=== PATIENT | female | born 1940 | race Caucasian/White ===

== ENCOUNTER 2016-11-10 01:49 | Emergency (ER) | payer MEDICARE, BC ==
[2016-11-10 03:00] LABS: BASO % 0.1 % (0-6); EOS % 3.3 % (0-6); GRAN % 75.5 % (47-80); HEMATOCRIT 35.8 % (35.0-47.0); LYMPH % 14.9 % (16-45); MEAN CELL VOLUME 91.3 fl (81-97); MEAN CORPUSCULAR HGB CONC 30.7 g/dl (32-36); MONO % 6.2 % (0-9); PLATELET COUNT 254 K/uL (130-400); RED BLOOD COUNT 3.92 M/uL (3.80-5.40); RED CELL DISTRIBUTION WIDTH 14.9 % (11.5-14.5); WHITE BLOOD COUNT W/O DIFF 8.8 K/uL (4.2-12.2)
[2016-11-10 03:02] LABS: INR 0.99; PARTIAL THROMBOPLASTIN TIME 27.3 SECONDS (24.5-39.1); PROTHROMBIN TIME (PATIENT) 10.7 SECONDS (9.5-12.1)
[2016-11-10 03:04] LABS: CREATININE 1.5 mg/dL (0.5-0.9)
--- NOTE | 2016-11-10 03:26 | Emergency Department Record ---
History of Present Illness - General Chief complaint: Lower Extremity Pain Stated complaint: UPPER LEFT LEG PAIN Time Seen by Provider: 11/10/16 02:20 Source: Patient Mode of Arrival: Ambulatory Limitations: No limitations - History of Present Illness Initial comments: pt c/o lle pain. pt is very poor historian she denies injury, she states it hurts from the groin to the knee along the medial aspect Complaint: Extremity pain Onset/Timin -: Days(s) Location: Left, Lower Leg, Thigh History of Same: Yes Severity scale (1-10): 5 Improves with: Medication, Rest Worsens with: Walking Associated Symptoms: Denies other symptoms - Related Data Previous Rx's Medication Instructions Recorded Acetaminophen [Tylenol 325Mg] 650 mg PO Q6H PRN #0 tablet 07/15/15 Albuterol Sulfate [Proair Hfa] 1 - 2 puff IH .EVERY 4-6 HOURS PRN 07/15/15 #1 inhaler Oxybutynin Chloride [Ditropan] 5 mg PO BID tab 07/15/15 Allergies Allergy/AdvReac Type Severity Reaction Status Date / Time Penicillins Allergy HIVES Verified 10/08/14 11:39 Sulfa (Sulfonamide Allergy HIVES Verified 10/08/14 11:39 Antibiotics) Tetanus Vaccines and Toxoid AdvReac SWELLING Verified 10/08/14 11:39 [Tetanus Vaccines & Toxoid] (GENERAL) Travel Screening - Travel/Exposure Within Last 30 Days Have you traveled within the last 30 days?: No - Travel Symptoms Symptom Screening: None Review of Systems Reviewed: No additional complaints except as noted below Constitutional: Reports: As per HPI. Denies: Chills, Fever, Malaise, Night sweats, Weakness, Weight change Eyes: Reports: As per HPI. Denies: Eye discharge, Eye pain, Photophobia, Vision change ENT: Reports: As per HPI. Denies: Congestion, Dental pain, Ear pain, Epistaxis , Hearing loss, Throat pain Respiratory: Reports: As per HPI. Denies: Cough, Dyspnea, Hemoptysis, Stridor, Wheezes Cardiovascular: Reports: As per HPI. Denies: Arrhythmia, Chest pain, Dyspnea on exertion, Edema, Murmurs, Orthopnea, Palpitations, Paroxysmal nocturnal dyspnea, Rheumatic Fever, Syncope Endocrine: Reports: As per HPI. Denies: Fatigue, Heat or cold intolerance, Polydipsia, Polyuria Gastrointestinal: Reports: As per HPI. Denies: Abdominal pain, Constipation, Diarrhea, Hematemesis, Hematochezia, Melena, Nausea, Vomiting Genitourinary: Reports: As per HPI. Denies: Abnormal menses, Discharge, Dyspareunia, Dysuria, Frequency, Hematuria, Incontinence, Retention, Urgency Musculoskeletal: Reports: As per HPI. Denies: Arthralgia, Back pain, Gout, Joint swelling, Myalgia, Neck pain Skin: Reports: As per HPI. Denies: Bruising, Change in color, Change in hair/ nails, Lesions, Pruritus, Rash Neurological: Reports: As per HPI. Denies: Abnormal gait, Confusion, Headache, Numbness, Paresthesias, Seizure, Tingling, Tremors, Vertigo, Weakness Psychiatric: Reports: As per HPI. Denies: Anxiety, Auditory hallucinations, Depression, Homicidal thoughts, Suicidal thoughts, Visual hallucinations Hematological/Lymphatic: Reports: As per HPI. Denies: Anemia, Blood Clots, Easy bleeding, Easy bruising, Swollen glands Past Medical History - SOCIAL HISTORY Smoking Status: Never smoker - RESPIRATORY Hx Respiratory Disorders: Yes Hx Asthma: Yes - CARDIOVASCULAR Hx Cardio Disorders: No - NEURO Hx Neuro Disorders: Yes Hx Headaches: Yes Hx Neuropathy: Yes (finger tips-bilateral) Comment:: vertigo-all the time - GI Hx GI Disorders: Yes Hx Reflux: Yes Hx Wt Loss/Wt Gain: Yes (down 10 in a few months) - Hx Genitourinary Disorders: Yes Hx Bladder Problem: Yes Comment:: urinary incont. - ENDOCRINE Hx Endocrine Disorders: Yes Hx Thyroid Disease: Yes (graves) - MUSCULOSKELETAL Hx Musculoskeletal Disorders: Yes Hx Arthritis: Yes Hx Fibromyalgia: Yes Hx Osteoporosis: Yes Comment:: RLS - PSYCH Hx Psych Problems: Yes Hx Anxiety: Yes Hx Depression: Yes - HEMATOLOGY/ONCOLOGY Hx Hematology/Oncology Disorders: Yes Hx Cancer: Yes (breast) Hx Chemotherapy: Yes Hx Radiation Therapy: No Family Medical History Any Significant Family History?: Yes Family Hx Comment (NOT TO BE USED IN PLACE OF ITEMS BELOW): hematonecrosis- maternal grandmother *Cancer Comment: breast cancer in niece and cousins Hx Stroke: Mother Physical Exam - General General Appearance: Alert, Oriented x3, Cooperative, Mild distress - Head Head exam: Normal inspection - Eye Eye exam: Normal appearance, PERRL, EOMI Pupils: Normal accommodation - ENT ENT exam: Normal exam, Mucous membranes moist, Normal external ear exam, Normal orophraynx Ear exam: Normal external inspection. negative: External canal tenderness Nasal Exam: Normal inspection. negative: Discharge, Sinus tenderness Mouth exam: Normal external inspection, Tongue normal Teeth exam: Normal inspection. negative: Dental caries Throat exam: Normal inspection. negative: Tonsillar erythema, Tonsillar exudate - Neck Neck exam: Normal inspection, Full ROM. negative: Tenderness - Respiratory Respiratory exam: Normal lung sounds bilaterally. negative: Respiratory distress - Cardiovascular Cardiovascular Exam: Regular rate, Normal rhythm, Normal heart sounds - GI/Abdominal GI/Abdominal exam: Soft, Normal bowel sounds. negative: Tenderness - Rectal Rectal exam: Deferred - exam: Deferred - Extremities Extremities exam: Normal inspection, Full ROM, Normal capillary refill. negative: Tenderness - Back Back exam: Reports: Normal inspection, Full ROM. Denies: Muscle spasm, Rash noted, Tenderness - Neurological Neurological exam: Alert, CN II-XII intact, Normal gait, Oriented X3 - Psychiatric Psychiatric exam: Normal affect, Normal mood - Skin Skin exam: Dry, Intact, Normal color, Warm Course Vital Signs 11/10/16 11/10/16 02:09 03:20 Temperature 99.2 F 98.9 F Pulse Rate [ 93 H 81 Pulse Ox Probe] Respiratory 24 20 Rate Blood Pressure 138/64 109/68 [Left Arm] Pulse Ox 95 96 - Reevaluation(s) Reevaluation #1: 11/10/16 07:[address] brandon Medical Decision Making - Lab Data Result diagrams: 11/10/16 02:41 11/10/16 02:41 Lab Results 11/10/16 11/10/16 11/10/16 Range/Units 02:41 02:41 02:41 WBC 8.8 (4.2-12.2) K/uL RBC 3.92 (3.80-5.40) M/uL Hgb 11.0 L (11.6-16.0) gm/dl Hct 35.8 (35.0-47.0) % MCV 91.3 (81-97) fl MCH 28.0 (27-33) pg MCHC 30.7 L (32-36) g/dl RDW 14.9 H (11.5-14.5) % Plt Count 254 (130-400) K/uL MPV 10.0 (7.4-10.4) fl Gran % 75.5 (47-80) % Lymphocytes % 14.9 L (16-45) % Monocytes % 6.2 (0-9) % Eosinophils % 3.3 (0-6) % Basophils % 0.1 (0-6) % PT 10.7 (9.5-12.1) SECONDS INR 0.99 APTT 27.30 (24.5-39.1) SECONDS Sodium 140 (136-145) mmol/L Potassium 4.0 (3.4-4.5) mmol/L Chloride 104 (98-107) mmol/L Carbon Dioxide 22.0 (22-29) mmol/L Anion Gap 14.0 (7-16) BUN 17 (8-23) mg/dL Creatinine 1.5 H (0.5-0.9) mg/dL Estimated GFR 36 mL/min Random Glucose 110 H (74-109) mg/dL Calcium 8.5 L (8.8-10.2) mg/dL Disposition Forms: Patient Portal Access Quality - Quality Measures Quality Measures: N/A - Blood Pressure Screening Does Patient Have Any of the Following: No Blood Pressure Classification: Hypertensive Reading Systolic Measurement: 153 Diastolic Measurement: 70 Screening for High Blood Pressure: < First Hypertensive BP, F/U Documented > [ G8950] First Hypertensive Follow-up Interventions: Follow-up with rescreen GT 1 day and LT 4 weeks.
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
--- NOTE | 2016-11-11 13:57 | US VENOUS DOPPLER REPORT ---
DATE: 11/10/2016. EXAM: Left lower extremity duplex venous ultrasound. HISTORY: Leg pain. TECHNIQUE: Transverse and longitudinal sonographic images of the left lower extremity deep venous system. COMPARISON: None. FINDINGS: Doppler and spectral analysis with color flow is utilized. Normal waveforms. Normal compression and augmentation throughout. No visible areas of clot formation. IMPRESSION: NEGATIVE EXAMINATION. JOB NUMBER: [id number] MTDD
--- NOTE | 2016-11-11 14:01 | RADIOLOGY REPORT ---
DATE: 11/10/2016. EXAM: LEFT FEMUR. HISTORY: Leg pain. TECHNIQUE: Four views of the left femur. COMPARISON: None. ENCOUNTER: Initial. FINDINGS: Osteopenia. Negative for fracture or dislocation. Mild degenerative changes of the knee and hip. Soft tissues are unremarkable. IMPRESSION: OSTEOPENIA. DEGENERATIVE CHANGE. JOB NUMBER: [id number] MTDD
== END 2016-11-10 09:03 | disposition home or self-care (01) ==
LOC: ER 01:49
DX: S39.012A Strain of muscle, fascia and tendon of lower back, initial encounter (principal); M79.652 Pain in left thigh; W19.XXXA Unspecified fall, initial encounter
CPT/HCPCS: 80048; 84443; 85025; 85379; 85610; 85730; 99283; 99284

== ENCOUNTER 2017-02-03 16:15 | Emergency (ER) | payer MEDICARE, BC ==
[2017-02-03] MEDS ORDERED: ACETAMINOPHEN 500 MG TABLET PO ONE (16:33)
--- NOTE | 2017-02-03 16:47 | Emergency Department Record ---
History of Present Illness - General Chief Complaint: Fever Stated Complaint: FEVER,COUGH Time Seen by Provider: 02/03/17 16:47 Source: Patient, RN notes reviewed Mode of Arrival: Ambulatory - History of Present Illness Initial Comments: 2 days of congestion and cough. Never smoked . asthma, left flank pain, uses inhaler albuterol times one MD Complaint: Fever Onset/Timin -: Days(s) Maximum Temperature: 102.9 F Temperature Source: Oral Treatments Prior to Arrival: Aspirin - Related Data Previous Rx's Medication Instructions Recorded Acetaminophen [Tylenol 325Mg] 650 mg PO Q6H PRN #0 tablet 07/15/15 Albuterol Sulfate [Proair Hfa] 1 - 2 puff IH .EVERY 4-6 HOURS PRN 07/15/15 #1 inhaler Oxybutynin Chloride [Ditropan] 5 mg PO BID tab 07/15/15 Hydrocodone/Acetaminophen [[place] 1 each PO Q6HR #30 tablet 11/10/16 5-325 Tablet] Oseltamivir Phosphate [Tamiflu] 75 mg PO BID #10 capsule 02/03/17 Allergies Allergy/AdvReac Type Severity Reaction Status Date / Time doxycycline Allergy HIVES Verified 02/03/17 16:24 erythromycin base Allergy HIVES Verified 02/03/17 16:24 Penicillins Allergy HIVES Verified 02/03/17 16:24 Sulfa (Sulfonamide Allergy HIVES Verified 02/03/17 16:24 Antibiotics) Tetanus Vaccines and Toxoid AdvReac SWELLING Verified 02/03/17 16:24 [Tetanus Vaccines & Toxoid] (GENERAL) Travel Screening - Travel/Exposure Within Last 30 Days Have you traveled within the last 30 days?: No - Travel/Exposure Within Last Year Have you traveled outside the [place] in the last year?: No - Additonal Travel Details Have you been exposed to anyone with a communicable illness?: No - Travel Symptoms Symptom Screening: None Past Medical History - SOCIAL HISTORY Smoking Status: Never smoker Alcohol Use: None Drug Use: None - RESPIRATORY Hx Respiratory Disorders: Yes Hx Asthma: Yes Hx Pneumonia: Yes - CARDIOVASCULAR Hx Cardio Disorders: No - NEURO Hx Neuro Disorders: Yes Hx Headaches: Yes Hx Neuropathy: Yes (finger tips-bilateral) Comment:: vertigo-all the time - GI Hx GI Disorders: Yes Hx Reflux: Yes Hx Wt Loss/Wt Gain: Yes (down 10 in a few months) - Hx Genitourinary Disorders: Yes Hx Bladder Problem: Yes Comment:: urinary incont. - ENDOCRINE Hx Endocrine Disorders: Yes Hx Thyroid Disease: Yes (graves) - MUSCULOSKELETAL Hx Musculoskeletal Disorders: Yes Hx Arthritis: Yes Hx Fibromyalgia: Yes Hx Osteoporosis: Yes Comment:: RLS - PSYCH Hx Psych Problems: Yes Hx Anxiety: Yes Hx Depression: Yes - HEMATOLOGY/ONCOLOGY Hx Hematology/Oncology Disorders: Yes Hx Cancer: Yes (breast) Hx Chemotherapy: Yes Hx Radiation Therapy: No Family Medical History Any Significant Family History?: Yes Family Hx Comment (NOT TO BE USED IN PLACE OF ITEMS BELOW): hematonecrosis- maternal grandmother *Cancer Comment: breast cancer in niece and cousins Hx Stroke: Mother Course Vital Signs 02/03/17 16:18 Temperature 103.1 F H Pulse Rate 108 H Respiratory 18 Rate Blood Pressure 165/88 Pulse Ox 95 Medical Decision Making - Data Complexity MDM Data: Labs Ordered and/or Reviewed (flu positive), X-Ray Ordered and/or Reviewed (negative chest) - Lab Data Result diagrams: 02/03/17 17:00 02/03/17 17:00 Disposition Clinical Impression: Influenza Fever Qualifiers: Fever type: unspecified Qualified Code(s): R50.9 - Fever, unspecified Disposition: Home, Self-Care Condition: (1) Good Instructions: Fever in Adults (ED), Influenza (ED) Additional Instructions: fluids rest tylenol or motrin follow up with family Dr in 4 days Prescriptions: Oseltamivir Phosphate [Tamiflu] 75 mg PO BID #10 capsule Forms: Patient Portal Access Time of Disposition: 18:43 Quality - Quality Measures Quality Measures: N/A - Blood Pressure Screening Does Patient Have Any of the Following: No Blood Pressure Classification: Pre-Hypertensive BP Reading Systolic Measurement: 165 Diastolic Measurement: 88 Screening for High Blood Pressure: < Pre-Hypertensive BP, F/U Documented > [ G8950] Pre-Hypertensive Follow-up Interventions: Referral to alternative/primary care provider.
[2017-02-03 16:55] LABS: STREP A SCREEN NEGATIVE (NEGATIVE)
[2017-02-03 16:56] LABS: INFLUENZA A POSITIVE (NEGATIVE); INFLUENZA B NEGATIVE (NEGATIVE)
[2017-02-03 17:12] LABS: BASO % 0.4 % (0-6); EOS % 1.3 % (0-6); GRAN % 75.7 % (47-80); HEMATOCRIT 34.6 % (35.0-47.0); HEMOGLOBIN 10.6 gm/dl (11.6-16.0); LYMPH % 12.9 % (16-45); MEAN CORPUSCULAR HGB CONC 30.6 g/dl (32-36); MEAN PLATELET VOLUME 9.9 fl (7.4-10.4); MONO % 9.7 % (0-9); PLATELET COUNT 230 K/uL (130-400); RED BLOOD COUNT 3.93 M/uL (3.80-5.40); RED CELL DISTRIBUTION WIDTH 14.7 % (11.5-14.5); WHITE BLOOD COUNT W/O DIFF 5.6 K/uL (4.2-12.2)
[2017-02-03 17:13] LABS: MEAN CORPUSCULAR HEMOGLOBIN 26.9 pg (27-33)
[2017-02-03 17:22] LABS: CREATININE 1.4 mg/dL (0.5-0.9)
[2017-02-03 17:26] LABS: LACTIC ACID 0.9 mmol/L (0.5-2.2)
[2017-02-03 17:37] LABS: URINE APPEARANCE CLEAR; URINE BILIRUBIN NEGATIVE (NEGATIVE); URINE BLOOD NEGATIVE (NEGATIVE); URINE COLOR YELLOW; URINE GLUCOSE (UA) NEGATIVE (NEGATIVE); URINE KETONE NEGATIVE (NEGATIVE); URINE LEUKOCYTE ESTERASE NEGATIVE (NEGATIVE); URINE NITRITE NEGATIVE (NEGATIVE); URINE PROTEIN NEGATIVE (NEGATIVE); URINE UROBILINOGEN 0.2 E.U./dL (0.20 - 1.00)
[2017-02-03] MEDS ORDERED: OSTELTAMIVIR 75 MG CAP PO ONE (17:42)
--- NOTE | 2017-02-04 08:35 | RADIOLOGY REPORT ---
EXAM: CHEST 2 VIEWS HISTORY: PRODUCTIVE COUGH AND FEVER. PREVIOUS BREAST CANCER. TECHNIQUE: Chest, two-view. COMPARISON: 07/13/15 FINDINGS: Cardiomediastinal silhouette is stable. Lungs and pleural spaces are clear. Coarsened interstitial markings are again noted within the lungs likely related to scarring/fibrosis. Note is made of surgical clips, left axilla. There is prominent degenerative change especially left glenohumeral joint with a high-riding humeral head consistent with underlying rotator cuff tearing. Surgical changes within the visualized midline upper abdomen. IMPRESSION: NO ACUTE PROCESS. JOB NUMBER: [id number] MTDD
== END 2017-02-03 18:52 | disposition home or self-care (01) ==
LOC: ER 16:15
DX: J10.1 Influenza due to other identified influenza virus with other respiratory manifestations (principal); R10.32 Left lower quadrant pain; R50.81 Fever presenting with conditions classified elsewhere; Z85.3 Personal history of malignant neoplasm of breast
CPT/HCPCS: 71020; 80048; 81003; 83605; 85025; 87400; 87880; 99283; 99284

== ENCOUNTER 2017-08-19 14:54 | Emergency (ER) | payer MEDICARE, BC ==
--- NOTE | 2017-08-19 16:36 | Emergency Department Record ---
History of Present Illness - General Chief complaint: Rash Stated complaint: FACIAL RASH AND PAIN Time Seen by Provider: 08/19/17 16:12 Source: Patient Mode of Arrival: EMS Limitations: No limitations - History of Present Illness Initial comments: pt came in for a rash on her face that she has had for a month. she has seen dr hammer for it and bxs were done a few days ago. she states the rash is painful and now the inside of her mouth hurts. the rash covers the entire l side of her face. she is being tested for shingles complaint: Rash Onset/Timin -: Month(s) Location: Face Severity: Moderate Severity scale (1-10): 10 Quality: Aching, Burning Consistency: Constant Improves with: None Context: None Associated symptoms: Denies other symptoms - Related Data Previous Rx's Medication Instructions Recorded Acetaminophen [Tylenol 325Mg] 650 mg PO Q6H PRN #0 tablet 07/15/15 Albuterol Sulfate [Proair Hfa] 1 - 2 puff IH .EVERY 4-6 HOURS PRN 07/15/15 #1 inhaler Oxybutynin Chloride [Ditropan] 5 mg PO BID tab 07/15/15 Hydrocodone/Acetaminophen [[place] 1 each PO Q6HR #30 tablet 11/10/16 5-325 Tablet] Hydrocodone/Acetaminophen [[place] 1 each PO Q6HR #7 tablet 08/19/17 5-325 Tablet] Nystatin 100,000 unit PO BID #20 oral.susp 08/19/17 Allergies Allergy/AdvReac Type Severity Reaction Status Date / Time doxycycline Allergy HIVES Verified 08/19/17 15:06 erythromycin base Allergy HIVES Verified 08/19/17 15:06 Penicillins Allergy HIVES Verified 08/19/17 15:06 Sulfa (Sulfonamide Allergy HIVES Verified 08/19/17 15:06 Antibiotics) Tetanus Vaccines and Toxoid AdvReac SWELLING Verified 08/19/17 15:06 [Tetanus Vaccines & Toxoid] (GENERAL) Travel Screening - Travel/Exposure Within Last 30 Days Have you traveled within the last 30 days?: No - Travel/Exposure Within Last Year Have you traveled outside the [place] in the last year?: No - Additonal Travel Details Have you been exposed to anyone with a communicable illness?: No - Travel Symptoms Symptom Screening: None Review of Systems Reviewed: No additional complaints except as noted below Constitutional: Reports: As per HPI. Denies: Chills, Fever, Malaise, Night sweats, Weakness, Weight change Eyes: Reports: As per HPI. Denies: Eye discharge, Eye pain, Photophobia, Vision change ENT: Reports: As per HPI. Denies: Congestion, Dental pain, Ear pain, Epistaxis , Hearing loss, Throat pain Respiratory: Reports: As per HPI. Denies: Cough, Dyspnea, Hemoptysis, Stridor, Wheezes Cardiovascular: Reports: As per HPI. Denies: Arrhythmia, Chest pain, Dyspnea on exertion, Edema, Murmurs, Orthopnea, Palpitations, Paroxysmal nocturnal dyspnea, Rheumatic Fever, Syncope Endocrine: Reports: As per HPI. Denies: Fatigue, Heat or cold intolerance, Polydipsia, Polyuria Gastrointestinal: Reports: As per HPI. Denies: Abdominal pain, Constipation, Diarrhea, Hematemesis, Hematochezia, Melena, Nausea, Vomiting Genitourinary: Reports: As per HPI. Denies: Abnormal menses, Discharge, Dyspareunia, Dysuria, Frequency, Hematuria, Incontinence, Retention, Urgency Musculoskeletal: Reports: As per HPI. Denies: Arthralgia, Back pain, Gout, Joint swelling, Myalgia, Neck pain Skin: Reports: As per HPI, Rash. Denies: Bruising, Change in color, Change in hair/nails, Lesions, Pruritus Neurological: Reports: As per HPI. Denies: Abnormal gait, Confusion, Headache, Numbness, Paresthesias, Seizure, Tingling, Tremors, Vertigo, Weakness Psychiatric: Reports: As per HPI. Denies: Anxiety, Auditory hallucinations, Depression, Homicidal thoughts, Suicidal thoughts, Visual hallucinations Hematological/Lymphatic: Reports: As per HPI. Denies: Anemia, Blood Clots, Easy bleeding, Easy bruising, Swollen glands Past Medical History - SOCIAL HISTORY Smoking Status: Never smoker Alcohol Use: None Drug Use: None - RESPIRATORY Hx Respiratory Disorders: Yes Hx Asthma: Yes Hx Pneumonia: Yes - CARDIOVASCULAR Hx Cardio Disorders: No - NEURO Hx Neuro Disorders: Yes Hx Headaches: Yes Hx Neuropathy: Yes (finger tips-bilateral) Comment:: vertigo-all the time - GI Hx GI Disorders: Yes Hx Reflux: Yes Hx Wt Loss/Wt Gain: Yes (down 10 in a few months) - Hx Genitourinary Disorders: Yes Hx Bladder Problem: Yes Comment:: urinary incont. - ENDOCRINE Hx Endocrine Disorders: Yes Hx Thyroid Disease: Yes (graves) - MUSCULOSKELETAL Hx Musculoskeletal Disorders: Yes Hx Arthritis: Yes Hx Fibromyalgia: Yes Hx Osteoporosis: Yes Comment:: RLS - PSYCH Hx Psych Problems: Yes Hx Anxiety: Yes Hx Depression: Yes - HEMATOLOGY/ONCOLOGY Hx Hematology/Oncology Disorders: Yes Hx Cancer: Yes (breast) Hx Chemotherapy: Yes (2001) Hx Radiation Therapy: No Family Medical History Any Significant Family History?: Yes Family Hx Comment (NOT TO BE USED IN PLACE OF ITEMS BELOW): hematonecrosis- maternal grandmother *Cancer Comment: breast cancer in niece and cousins Hx Stroke: Mother Physical Exam - General General Appearance: Alert, Oriented x3, Cooperative, Mild distress - Head Head exam: Normal inspection - Eye Eye exam: Normal appearance, PERRL, EOMI Pupils: Normal accommodation - ENT ENT exam: Normal exam, Mucous membranes moist, Normal external ear exam, Normal orophraynx Ear exam: Normal external inspection. negative: External canal tenderness Nasal Exam: Normal inspection. negative: Discharge, Sinus tenderness Mouth exam: Normal external inspection, Other (tongue and oral pharynx is erythematous) Teeth exam: Normal inspection. negative: Dental caries Throat exam: Tonsillar erythema. negative: Tonsillar exudate - Neck Neck exam: Normal inspection, Full ROM. negative: Tenderness - Respiratory Respiratory exam: Normal lung sounds bilaterally. negative: Respiratory distress - Cardiovascular Cardiovascular Exam: Regular rate, Normal rhythm, Normal heart sounds - GI/Abdominal GI/Abdominal exam: Soft, Normal bowel sounds. negative: Tenderness - Rectal Rectal exam: Deferred - exam: Deferred - Extremities Extremities exam: Normal inspection, Full ROM, Normal capillary refill. negative: Tenderness - Back Back exam: Reports: Normal inspection, Full ROM. Denies: Muscle spasm, Rash noted, Tenderness - Neurological Neurological exam: Alert, CN II-XII intact, Normal gait, Oriented X3 - Psychiatric Psychiatric exam: Normal affect, Normal mood - Skin Skin exam: Dry, Intact, Normal color, Rash, Warm Distribution of rash: Face Description of rash: Macular, Papular Course Vital Signs 08/19/17 14:58 Temperature 99.7 F H Pulse Rate 87 Respiratory 18 Rate Blood Pressure 171/79 Pulse Ox 97 - Reevaluation(s) Reevaluation #1: 08/19/17 18:23 pt has had a course of cipro, steroids and acyclovir. bx pending Medical Decision Making - Lab Data Result diagrams: 08/19/17 17:00 08/19/17 17:00 Disposition Disposition: Discharge Clinical Impression: Rash, Thrush Disposition: Home, Self-Care Condition: (1) Good Instructions: Acute Rash (ED), Oral Candidiasis (ED) Additional Instructions: follow up with dr hammer. return sooner if worse. swish and swallow twice a day Prescriptions: Hydrocodone/Acetaminophen [[place] 5-325 Tablet] 1 each PO Q6HR #7 tablet Nystatin 100,000 unit PO BID #20 oral.susp Forms: Patient Portal Access Quality - Quality Measures Quality Measures: N/A - Blood Pressure Screening Does Patient Have Any of the Following: No Blood Pressure Classification: Hypertensive Reading Systolic Measurement: 171 Diastolic Measurement: 79 Screening for High Blood Pressure: < First Hypertensive BP, F/U Documented > [ G8950] First Hypertensive Follow-up Interventions: Follow-up with rescreen GT 1 day and LT 4 weeks.
[2017-08-19 17:10] LABS: BASO % 0.2 % (0-6); HEMATOCRIT 36.4 % (35.0-47.0); HEMOGLOBIN 11.5 gm/dl (11.6-16.0); LYMPH % 17.5 % (16-45); MEAN CELL VOLUME 86.5 fl (81-97); MEAN CORPUSCULAR HEMOGLOBIN 27.3 pg (27-33); MEAN CORPUSCULAR HGB CONC 31.6 g/dl (32-36); MEAN PLATELET VOLUME 9.9 fl (7.4-10.4); MONO % 6.3 % (0-9); PLATELET COUNT 278 K/uL (130-400); RED BLOOD COUNT 4.21 M/uL (3.80-5.40); RED CELL DISTRIBUTION WIDTH 15.4 % (11.5-14.5); WHITE BLOOD COUNT W/O DIFF 12.1 K/uL (4.2-12.2)
[2017-08-19] MEDS ORDERED: HYDROCODONE/APAP 5/325MG TABLET PO ONE (17:10)
[2017-08-19 17:24] LABS: BILIRUBIN,TOTAL 0.6 mg/dL (0.2-1.0)
[2017-08-19 17:25] LABS: TOTAL PROTEIN 6.2 g/dL (6.6-8.7)
[2017-08-19 17:30] LABS: ALB/GLOB RATIO 1.4 (1.1-1.8); ALBUMIN 3.6 g/dL (4.0-5.0)
[2017-08-19 17:45] LABS: ERYTHROCYTE SEDIMENTATION RATE 22 mm/hr (0-30)
[2017-08-19] MEDS ORDERED: LIDOCAINE VISC 2% 15ML SOLUTION MM ONE (18:24)
[2017-08-19] MEDS: NYSTATIN 100,000 UNITS/ML 5ML CUP PO ONE (19:15)
== END 2017-08-19 19:18 | disposition home or self-care (01) ==
LOC: ER 14:54
DX: R21 Rash and other nonspecific skin eruption (principal); B37.0 Candidal stomatitis
CPT/HCPCS: 99283 ×2; 85025; 85651; 80053; J3490

== ENCOUNTER 2018-01-24 14:12 | Emergency (ER) | payer MEDICARE, BC ==
--- NOTE | 2018-01-24 14:36 | Emergency Department Record ---
History of Present Illness - General Chief Complaint: Mental health evaluation Stated Complaint: WANTS A MENTAL EVALUATION Time Seen by Provider: 01/24/18 14:24 Source: Patient, Family Mode of Arrival: Ambulatory Limitations: No limitations - History of Present Illness Initial Comments: The patient is here due to having memory issues for at least a month. She is here with her son who she lives with and who takes care of her. For at least a month the patient the patient has been having more confusion off and on. She also has possibly fallen out of bed at times. She is able to walk with a cane and is able to take care of herself. The patient does see Dr. Tamy Flores and did have an appointment with him last month but the son is not sure about a F/U appointment. The patient presently denies any ALONSO, neck pain, CP, SOB, [place], AP, dysuria, fever, chills, or vomiting. MD Complaint: Altered mental status Onset/Timin -: Month(s) Associated Psychiatric Symptoms: Other History of same: Yes Quality: Getting worse Improves With: Medication Worsens With: Other Context: Other Associated Symptoms: Confusion, Other Treatments Prior to Arrival: None Details of Plan: alert and oriented - [place] Coma Scale Eye Response: (4) Open spontaneously Motor Response: (6) Obeys commands Verbal Response: (5) Oriented [place] Total: 15 - Related Data Previous Rx's Medication Instructions Recorded Oxybutynin Chloride [Ditropan] 5 mg PO BID tab 07/15/15 Hydrocodone/Acetaminophen [[place] 1 each PO Q6HR #7 tablet 08/19/17 5-325 Tablet] Ciprofloxacin HCl [Cipro] 1 tab PO Q12H #14 tab 01/24/18 Allergies Allergy/AdvReac Type Severity Reaction Status Date / Time doxycycline Allergy HIVES Verified 08/19/17 15:06 erythromycin base Allergy HIVES Verified 08/19/17 15:06 Penicillins Allergy HIVES Verified 08/19/17 15:06 Sulfa (Sulfonamide Allergy HIVES Verified 08/19/17 15:06 Antibiotics) Tetanus Vaccines and Toxoid AdvReac SWELLING Verified 08/19/17 15:06 [Tetanus Vaccines & Toxoid] (GENERAL) Review of Systems Constitutional: Denies: Chills, Fever, Malaise Eyes: Denies: Eye discharge ENT: Denies: Congestion Respiratory: Denies: Cough, Dyspnea Cardiovascular: Denies: Arrhythmia Endocrine: Reports: Fatigue Gastrointestinal: Denies: Abdominal pain Genitourinary: Denies: Dysuria Musculoskeletal: Denies: Arthralgia Skin: Denies: Bruising Past Medical History - SOCIAL HISTORY Smoking Status: Never smoker Alcohol Use: None Drug Use: None - RESPIRATORY Hx Respiratory Disorders: Yes Hx Asthma: Yes Hx Pneumonia: Yes - CARDIOVASCULAR Hx Cardio Disorders: No - NEURO Hx Neuro Disorders: Yes Hx Headaches: Yes Hx Neuropathy: Yes (finger tips-bilateral) Comment:: vertigo-all the time - GI Hx GI Disorders: Yes Hx Reflux: Yes Hx Wt Loss/Wt Gain: Yes (down 10 in a few months) - Hx Genitourinary Disorders: Yes Hx Bladder Problem: Yes Comment:: urinary incont. - ENDOCRINE Hx Endocrine Disorders: Yes Hx Thyroid Disease: Yes (graves) - MUSCULOSKELETAL Hx Musculoskeletal Disorders: Yes Hx Arthritis: Yes Hx Fibromyalgia: Yes Hx Osteoporosis: Yes Comment:: RLS - PSYCH Hx Psych Problems: Yes Hx Anxiety: Yes Hx Depression: Yes - HEMATOLOGY/ONCOLOGY Hx Hematology/Oncology Disorders: Yes Hx Cancer: Yes (breast) Hx Chemotherapy: Yes (2001) Hx Radiation Therapy: No Family Medical History Any Significant Family History?: Yes Family Hx Comment (NOT TO BE USED IN PLACE OF ITEMS BELOW): hematonecrosis- maternal grandmother *Cancer Comment: breast cancer in niece and cousins Hx Stroke: Mother Physical Exam - General General Appearance: Alert, Oriented x3, Cooperative, No acute distress - Head Head exam: Atraumatic, Normocephalic, Normal inspection - Eye Eye exam: Normal appearance, PERRL, EOMI - ENT Throat exam: Normal inspection. negative: Tonsillar erythema, Tonsillar exudate - Neck Neck exam: Normal inspection, Full ROM. negative: Tenderness - Respiratory Respiratory exam: Normal lung sounds bilaterally. negative: Respiratory distress - Cardiovascular Cardiovascular Exam: Regular rate, Normal rhythm, Normal heart sounds - GI/Abdominal GI/Abdominal exam: Soft, Normal bowel sounds. negative: Rebound, Rigid, Tenderness - Extremities Extremities exam: Normal inspection, Full ROM, Normal capillary refill. negative: Tenderness - Neurological Neurological exam: Alert, Normal gait, Oriented X3 (The patient is oriented to name, place, year and address. She is not sure of the day of the week but answered every other question normally.). negative: Abnormal gait, Altered, Motor sensory deficit Course Vital Signs 01/24/18 14:16 Temperature 99.5 F Pulse Rate 102 H Respiratory 20 Rate Blood Pressure 144/106 Pulse Ox 97 - Reevaluation(s) Reevaluation #1: The patient is doing very well at this time. I did discuss the need for an oral Abx at home due to the UTI. She is also to drink more fluids and see her PCP next week. 01/24/18 15:25 Medical Decision Making - Data Complexity MDM Data: Labs Ordered and/or Reviewed, X-Ray Ordered and/or Reviewed - Lab Data Result diagrams: 01/24/18 14:45 01/24/18 14:45 - Radiology Data Radiology results: Report reviewed (Head CT: Neg CXR: Neg.) Disposition Disposition: Discharge Clinical Impression: UTI symptoms Disposition: Home, Self-Care Condition: (2) Stable Instructions: Urinary Tract Infection in Women (ED) Additional Instructions: Please drink plenty of fluids and take the Cipro as directed. Please see your family doctor for recheck next week. Return to the ER for any worsening symptoms , pain, fever, worse confusion or vomiting. Prescriptions: Ciprofloxacin HCl [Cipro] 1 tab PO Q12H #14 tab Forms: Patient Portal Access Time of Disposition: 15:27 Quality - Quality Measures Quality Measures: N/A - Blood Pressure Screening View Details: Yes Does Patient Have Any of the Following: Active Dx of HTN Blood Pressure Classification: Hypertensive Reading Systolic Measurement: 144 Diastolic Measurement: 106 Screening for High Blood Pressure: Patient Exclusion, Hx of HTN [G9744]
[2018-01-24 14:51] LABS: BASO % 0.2 % (0-6); EOS % 0.3 % (0-6); GRAN % 70.2 % (47-80); HEMATOCRIT 34.2 % (35.0-47.0); HEMOGLOBIN 11.2 gm/dl (11.6-16.0); LYMPH % 22.8 % (16-45); MEAN CELL VOLUME 85.7 fl (81-97); MEAN CORPUSCULAR HGB CONC 32.7 g/dl (32-36); MEAN PLATELET VOLUME 10.3 fl (7.4-10.4); MONO % 6.5 % (0-9); PLATELET COUNT 249 K/uL (130-400); RED BLOOD COUNT 3.99 M/uL (3.80-5.40); RED CELL DISTRIBUTION WIDTH 14.5 % (11.5-14.5); URINE APPEARANCE CLEAR; URINE BILIRUBIN NEGATIVE (NEGATIVE); URINE BLOOD TRACE-I (NEGATIVE); URINE COLOR YELLOW; URINE GLUCOSE (UA) NEGATIVE (NEGATIVE); URINE KETONE NEGATIVE (NEGATIVE); URINE LEUKOCYTE ESTERASE TRACE (NEGATIVE); URINE NITRITE POSITIVE (NEGATIVE); URINE PROTEIN NEGATIVE (NEGATIVE); URINE UROBILINOGEN 0.2 E.U./dL (0.20 - 1.00); WHITE BLOOD COUNT W/O DIFF 9.8 K/uL (4.2-12.2)
[2018-01-24 14:59] LABS: URINE BACTERIA 4+; URINE RBC 0 - 2 (NONE SEEN); URINE WBC >50 (0-2/hpf)
[2018-01-24 15:01] LABS: BILIRUBIN,TOTAL 0.5 mg/dL (0.2-1.0); CREATININE 1.4 mg/dL (0.5-0.9); TOTAL PROTEIN 6.7 g/dL (6.6-8.7)
[2018-01-24 15:06] LABS: ALB/GLOB RATIO 1.2 (1.1-1.8); ALBUMIN 3.7 g/dL (4.0-5.0)
[2018-01-24] MEDS ORDERED: CIPROFLOXACIN HCL 500 MG TABLET PO ONE (15:08)
--- NOTE | 2018-01-25 20:29 | CT SCAN REPORT ---
EXAM: CT SCAN HEAD WO CONTRAST HISTORY: MEMORY LOSS. TECHNIQUE: Sequential axial images were obtained from the foramen magnum to the vertex without contrast administration. COMPARISON: 10/08/2014. FINDINGS: Brain volume is normal. No large territorial infarct, hemorrhage, mass effect, or midline shift. No extraaxial fluid collection. The orbits, paranasal sinuses, and mastoid air cells are normal. IMPRESSION: NO ACUTE INTRACRANIAL ABNORMALITY IS APPRECIATED. JOB NUMBER: [id number] MTDD
--- NOTE | 2018-01-25 20:33 | RADIOLOGY REPORT ---
EXAM: CHEST 2 VIEWS HISTORY: MEMORY LOSS. TECHNIQUE: Frontal and lateral views of the chest were performed. COMPARISON: 02/03/2017. FINDINGS: Heart size is normal. No pulmonary vascular congestion. No infiltrate or pleural effusion. Post-op surgical clips in the left axillary region. Mild degenerative change of the thoracic spine. IMPRESSION: NO ACUTE PULMONARY DISEASE PROCESS. JOB NUMBER: [id number] MTDD
== END 2018-01-24 15:35 | disposition home or self-care (01) ==
LOC: ER 14:12
DX: N39.0 Urinary tract infection, site not specified (principal); R41.82 Altered mental status, unspecified; I10 Essential (primary) hypertension
CPT/HCPCS: 70450; 71046; 80053; 81001; 85025; 99283; 99284